=== PATIENT | male | born 1995 | race Caucasian/White ===

== ENCOUNTER 2018-07-03 12:41 | Emergency (ER) | payer OTHER ==
[~2018-07-03] VITALS: Ht 167.6 cm; Wt 63.3 kg
[~2018-07-03 12:41] MED LIST: FLUO-191 PO; FOLI1 PO; MULT-1238 PO; OLAN5TAB40 PO; THIA100T67 PO
[2018-07-03 13:34] LABS: BASOPHILS % (AUTO) 0.5 % (0.0-2.0); EOSINOPHILS % (AUTO) 4.6 % (1.0-6.0); HEMATOCRIT 50.7 % (41-53); HEMOGLOBIN 17.6 g/dL (13.5-17.5); LYMPHOCYTES # (AUTO) 2.2 K/uL (1.0-4.8); LYMPHOCYTES % (AUTO) 24.6 % (22.0-44.0); MEAN CORPUSCULAR HEMOGLOBIN 32.1 pg (26.0-34.0); MEAN CORPUSCULAR HGB CONC 34.8 G/dL (31.0-37.0); MEAN CORPUSCULAR VOLUME 92 fL (80-100); MONOCYTES # (AUTO) 0.7 K/uL (0.1-1.0); MONOCYTES % (AUTO) 7.8 % (2.0-9.0); NEUTROPHILS # (AUTO) 5.6 K/uL (1.8-7.7); NEUTROPHILS % (AUTO) 62.5 % (40.0-70.0); PLATELET COUNT (AUTO) 311 K/uL (150-450); RED BLOOD CELL COUNT(AUTO) 5.49 MIL/uL (4.50-5.90); RED CELL DISTRIBUTION WIDTH 13.5 % (11.5-14.5)
[2018-07-03 13:41] LABS: ANION GAP 8 mmol/L (8-16); CALCIUM, TOTAL 8.9 mg/dL (8.8-10.5); CARBON DIOXIDE 26 mmol/L (22-29); CHLORIDE 101 mmol/L (98-107); CREATININE 0.87 mg/dL (0.60-1.30); GLOMERULAR FILTR. RATE CALC > 60 mL/min (>60); GLUCOSE,RANDOM 107 mg/dL (70-110); POTASSIUM 3.8 mmol/L (3.5-5.1); SODIUM SERUM 135 mmol/L (136-145); UREA NITROGEN, BLOOD 14 mg/dL (7-18)
[2018-07-03 13:47] LABS: ALANINE AMINOTRANSFERASE 25 U/L (12-78); ALBUMIN 4.4 g/dL (3.4-5.0); ALKALINE PHOSPHATASE 83 U/L (46-116); ASPARTATE AMINOTRANSFERASE 15 U/L (15-37); BILIRUBIN,TOTAL 0.9 mg/dL (0.1-1.0); TOTAL PROTEIN, SERUM 8.3 g/dL (6.4-8.2)
[2018-07-03 13:52] LABS: ACETAMINOPHEN < 2 mcg/mL (10-30)
[2018-07-03 13:56] LABS: SALICYLATE 3.6 mg/dL (2.8-20.0)
[2018-07-03] MEDS ORDERED: SODIUM CHLORIDE 0.9% 1,000 ML IV ONE ×2 (14:30→16:30)
[2018-07-03] MEDS ORDERED: LORazepam 2 MG/ML VIAL ONE (16:24)
[2018-07-03] MEDS ORDERED: HALOPERIDOL LACTATE 5 MG/ML VIAL ONE (16:24)
[2018-07-03] MEDS ORDERED: DiphenhydrAMINE HCL 50 MG/ML VIAL ONE (16:24)
[2018-07-03] MEDS ORDERED: DiphenhydrAMINE HCL 50 MG/ML VIAL IVP ONE (16:30)
[2018-07-03] MEDS ORDERED: LORazepam 2 MG/ML VIAL IVP ONE (16:30)
[2018-07-03] MEDS ORDERED: HALOPERIDOL LACTATE 5 MG/ML VIAL IVP ONE (16:30)
[2018-07-03] MEDS ORDERED: LORazepam 2 MG TABLET PO PRN (17:45)
[2018-07-03] MEDS ORDERED: ZOLPIDEM TARTRATE 10 MG TABLET PO PRN (17:45)
[2018-07-03] MEDS ORDERED: HALOPERIDOL 5 MG TABLET PO PRN (17:45)
[2018-07-04 02:43] LABS: APPEARANCE,URINE CLEAR (CLEAR); BILIRUBIN,URINE NEGATIVE (NEGATIVE); GLUCOSE, URINE (UA) NEGATIVE (NEGATIVE); KETONES,URINE 40 mg/dL (NEGATIVE); LEUKOCYTE ESTERASE ,URINE NEGATIVE (NEGATIVE); NITRATE,URINE NEGATIVE (NEGATIVE); OCCULT BLOOD,URINE NEGATIVE (NEGATIVE); PROTEIN,URINE NEGATIVE (NEGATIVE); UROBILINOGEN,URINE 0.2 mg/dL (<=1.0)
[2018-07-04 02:47] LABS: AMPHET/METH SCREEN,URINE NEGATIVE (NEGATIVE); BARBITURATE SCREEN, URINE NEGATIVE (NEGATIVE); BENZODIAZEPINES SCREEN,URINE NEGATIVE (NEGATIVE); CANNABINOID SCREEN,URINE POSITIVE (NEGATIVE); COCAINE SCREEN,URINE NEGATIVE (NEGATIVE); METHADONE SCREEN, URINE NEGATIVE (NEGATIVE); OPIATE SCREEN,URINE NEGATIVE (NEGATIVE)
[2018-07-04 02:48] LABS: PHENCYCLIDINE SCREEN,URINE NEGATIVE (NEGATIVE)
[2018-07-04] MEDS ORDERED: DiphenhydrAMINE HCL 50 MG/ML VIAL ONE (15:05)
[2018-07-04] MEDS ORDERED: HALOPERIDOL LACTATE 5 MG/ML VIAL ONE (15:05)
[2018-07-04] MEDS ORDERED: LORazepam 2 MG/ML VIAL ONE (15:05)
[2018-07-04] MEDS ORDERED: DiphenhydrAMINE HCL 50 MG/ML VIAL IM ONE (15:15)
[2018-07-04] MEDS ORDERED: LORazepam 2 MG/ML VIAL IM ONE (15:15)
[2018-07-04] MEDS ORDERED: HALOPERIDOL LACTATE 5 MG/ML VIAL IM ONE (15:15)
[2018-07-04 17:13] VITALS: BP 138/78
== END 2018-07-04 18:32 | disposition short-term general hospital (02) ==
LOC: EMS 12:42
DX: T42.6X2A Poisoning by other antiepileptic and sedative-hypnotic drugs, intentional self-harm, initial encounter (principal); F20.9 Schizophrenia, unspecified; F32.9 Major depressive disorder, single episode, unspecified; F12.90 Cannabis use, unspecified, uncomplicated; Y92.89 Other specified places as the place of occurrence of the external cause
CPT/HCPCS: 36415; 80053; 80061; 80307; 81003; 85025; 93005; 96372; 96374; 96375; 99285; G0480 ×2; G0481; J1200 ×2; J1630 ×2; J2060 ×2

== ENCOUNTER 2018-12-30 09:48 | Emergency (ER) | payer OTHER ==
[~2018-12-30] VITALS: Ht 167.6 cm; Wt 59.0 kg
[2018-12-30 10:54] VITALS: BP 118/68
[2018-12-30 11:07] LABS: ANION GAP 10 mmol/L (8-16); CARBON DIOXIDE 25 mmol/L (22-29); CHLORIDE 103 mmol/L (98-107); CREATININE 1.13 mg/dL (0.60-1.30); GLOMERULAR FILTR. RATE CALC > 60 mL/min (>60); GLUCOSE,RANDOM 173 mg/dL (70-110); POTASSIUM 4.2 mmol/L (3.5-5.1); SODIUM SERUM 138 mmol/L (136-145); UREA NITROGEN, BLOOD 12 mg/dL (7-18)
[2018-12-30 11:12] LABS: BASOPHILS % (AUTO) 0.3 % (0.0-2.0); EOSINOPHILS % (AUTO) 3.5 % (1.0-6.0); HEMATOCRIT 51.3 % (41-53); HEMOGLOBIN 17.5 g/dL (13.5-17.5); LYMPHOCYTES # (AUTO) 1.2 K/uL (1.0-4.8); LYMPHOCYTES % (AUTO) 13.4 % (22.0-44.0); MEAN CORPUSCULAR HEMOGLOBIN 31.7 pg (26.0-34.0); MEAN CORPUSCULAR HGB CONC 34.1 G/dL (31.0-37.0); MEAN CORPUSCULAR VOLUME 93 fL (80-100); MONOCYTES # (AUTO) 0.7 K/uL (0.1-1.0); MONOCYTES % (AUTO) 7.9 % (2.0-9.0); NEUTROPHILS # (AUTO) 6.8 K/uL (1.8-7.7); NEUTROPHILS % (AUTO) 74.9 % (40.0-70.0); PLATELET COUNT (AUTO) 244 K/uL (150-450); RED CELL DISTRIBUTION WIDTH 13.3 % (11.5-14.5)
[2018-12-30 11:13] LABS: ALANINE AMINOTRANSFERASE 94 U/L (12-78); ALBUMIN 4.3 g/dL (3.4-5.0); ALKALINE PHOSPHATASE 68 U/L (46-116); ASPARTATE AMINOTRANSFERASE 324 U/L (15-37); BILIRUBIN,TOTAL 0.7 mg/dL (0.1-1.0); TOTAL PROTEIN, SERUM 7.5 g/dL (6.4-8.2)
[2018-12-30] MEDS ORDERED: OLANZapine 5 MG TABLET PO ONE (11:45)
== END 2018-12-30 12:13 | disposition home or self-care (01) ==
LOC: EMS 09:50
DX: F20.0 Paranoid schizophrenia (principal); R79.89 Other specified abnormal findings of blood chemistry; F32.9 Major depressive disorder, single episode, unspecified; F17.210 Nicotine dependence, cigarettes, uncomplicated
CPT/HCPCS: 36415; 80053; 85025; 99285; G0480

== ENCOUNTER 2019-04-22 04:13 | Inpatient (IN) | payer OTHER ==
[~2019-04-22] VITALS: Ht 167.6 cm; Wt 58.7 kg
[2019-04-22 04:33] LABS: BASOPHILS % (AUTO) 0.6 % (0.0-2.0); EOSINOPHILS % (AUTO) 6.7 % (1.0-6.0); HEMATOCRIT 47.6 % (41-53); HEMOGLOBIN 16.3 g/dL (13.5-17.5); LYMPHOCYTES # (AUTO) 2.3 K/uL (1.0-4.8); LYMPHOCYTES % (AUTO) 28.6 % (22.0-44.0); MEAN CORPUSCULAR HEMOGLOBIN 32.7 pg (26.0-34.0); MEAN CORPUSCULAR HGB CONC 34.2 G/dL (31.0-37.0); MEAN CORPUSCULAR VOLUME 96 fL (80-100); MONOCYTES # (AUTO) 0.5 K/uL (0.1-1.0); MONOCYTES % (AUTO) 6.3 % (2.0-9.0); NEUTROPHILS # (AUTO) 4.5 K/uL (1.8-7.7); NEUTROPHILS % (AUTO) 57.8 % (40.0-70.0); PLATELET COUNT (AUTO) 280 K/uL (150-450); RED BLOOD CELL COUNT(AUTO) 4.98 MIL/uL (4.50-5.90); RED CELL DISTRIBUTION WIDTH 13.3 % (11.5-14.5)
[2019-04-22 04:42] LABS: ANION GAP 13 mmol/L (8-16); CALCIUM, TOTAL 9.5 mg/dL (8.8-10.5); CARBON DIOXIDE 23 mmol/L (22-29); CHLORIDE 98 mmol/L (98-107); CREATININE 0.97 mg/dL (0.60-1.30); GLOMERULAR FILTR. RATE CALC > 60 mL/min (>60); GLUCOSE,RANDOM 216 mg/dL (70-110); POTASSIUM 3.2 mmol/L (3.5-5.1); SODIUM SERUM 134 mmol/L (136-145); UREA NITROGEN, BLOOD 19 mg/dL (7-18)
[2019-04-22 04:51] LABS: ALANINE AMINOTRANSFERASE 10 U/L (12-78); ALBUMIN 4.5 g/dL (3.4-5.0); ALKALINE PHOSPHATASE 75 U/L (46-116); ASPARTATE AMINOTRANSFERASE 14 U/L (15-37); BILIRUBIN,TOTAL 1.1 mg/dL (0.1-1.0); TOTAL PROTEIN, SERUM 7.7 g/dL (6.4-8.2)
[2019-04-22 04:55] LABS: ACETAMINOPHEN < 2 mcg/mL (10-30)
[2019-04-22] MEDS ORDERED: POTASSIUM CHLORIDE 20 MEQ ER TABLET PO ONE (05:00)
[2019-04-22 05:10] LABS: SALICYLATE 3.8 mg/dL (2.8-20.0)
[2019-04-22] MEDS ORDERED: OLANZapine 5 MG TABLET PO ONE (05:45)
[2019-04-22 12:24] LABS: AMPHET/METH SCREEN,URINE NEGATIVE (NEGATIVE); BARBITURATE SCREEN, URINE NEGATIVE (NEGATIVE); BENZODIAZEPINES SCREEN,URINE NEGATIVE (NEGATIVE); CANNABINOID SCREEN,URINE POSITIVE (NEGATIVE); COCAINE SCREEN,URINE NEGATIVE (NEGATIVE); METHADONE SCREEN, URINE NEGATIVE (NEGATIVE); OPIATE SCREEN,URINE NEGATIVE (NEGATIVE); PHENCYCLIDINE SCREEN,URINE NEGATIVE (NEGATIVE)
[2019-04-22] MEDS ORDERED: HydrOXYzine PAMOATE 50 MG CAPSULE PO PRN (14:00)
[2019-04-22] MEDS ORDERED: LORazepam 2 MG TABLET PO PRN (14:00)
[2019-04-22] MEDS ORDERED: LOPERAMIDE HCL 2 MG CAPSULE PO PRN (14:00)
[2019-04-22] MEDS ORDERED: ACETAMINOPHEN 325 MG TABLET PO PRN (14:00)
[2019-04-22] MEDS ORDERED: ZOLPIDEM TARTRATE 10 MG TABLET PO PRN (14:00)
[2019-04-22] MEDS ORDERED: GuaiFENesin/D-METHORPHAN [SUGAR-FREE] 200-20MG/10 ML SYRUP UDCUP PO PRN (14:00)
[2019-04-22] MEDS ORDERED: MAGNESIUM HYDROXIDE SUSPENSION 30 ML UDCUP PO PRN (14:00)
[2019-04-22] MEDS ORDERED: OLANZapine 5 MG RAPDIS TABLET PO PRN (14:00)
[2019-04-22] MEDS ORDERED: PROMETHAZINE HCL 25 MG TABLET PO PRN (14:00)
[2019-04-22] MEDS ORDERED: TUBERCULIN, PURIFIED PROTEIN DERIVATIVE 5 TU/0.1 ML SYRINGE ID ONE (14:00)
[2019-04-22] MEDS ORDERED: MAG HYDROX/AL HYDROX/SIMETH ES 30 ML SUSPENSION UDCUP PO PRN (14:00)
[2019-04-22] MEDS: THIAMINE HCL 100 MG TABLET PO SCH (17:00)
[2019-04-22 17:42] VITALS: BP 117/63
[2019-04-22] MEDS: NICOTINE 21 MG/24 HOUR PATCH TD SCH (18:08)
[2019-04-22] MEDS: OLANZapine 5 MG RAPDIS TABLET PO SCH (20:24)
[2019-04-23 08:07] LABS: CHOL/HDL RATIO 4.1 (4.2-7.3); FREE T4 (FREE THYROXINE) 1.15 ng/dL (0.76-1.46); POTASSIUM 4.9 mmol/L (3.5-5.1); THYROID STIMULATING HORMONE 0.35 uIU/mL (0.36-3.74)
[2019-04-23 08:32] VITALS: BP 110/76
[2019-04-23] MEDS: FOLIC ACID 1 MG TABLET PO SCH (09:03)
[2019-04-23] MEDS: FLUoxetine HCL 20 MG CAPSULE PO SCH (09:03)
[2019-04-23] MEDS: MULTIVITAMINS WITH MINERALS, THERAPEUTIC TABLET PO SCH (09:03)
[2019-04-23] MEDS: THIAMINE HCL 100 MG TABLET PO SCH ×2 (09:03→16:57)
[2019-04-23] MEDS: NICOTINE 21 MG/24 HOUR PATCH TD SCH (09:03)
[2019-04-23 16:00] VITALS: BP 115/67
[2019-04-23] MEDS: OLANZapine 5 MG RAPDIS TABLET PO SCH (20:25)
[2019-04-24 07:18] VITALS: BP 116/63
[2019-04-24] MEDS: NICOTINE 21 MG/24 HOUR PATCH TD SCH ×2 (08:51→09:00)
[2019-04-24] MEDS: THIAMINE HCL 100 MG TABLET PO SCH ×2 (08:51→17:09)
[2019-04-24] MEDS: MULTIVITAMINS WITH MINERALS, THERAPEUTIC TABLET PO SCH (08:56)
[2019-04-24] MEDS: FLUoxetine HCL 20 MG CAPSULE PO SCH (08:56)
[2019-04-24] MEDS: NALTREXONE HCL 50 MG TABLET PO SCH (08:56)
[2019-04-24] MEDS: FOLIC ACID 1 MG TABLET PO SCH (08:56)
[2019-04-24 16:23] VITALS: BP 138/78
[2019-04-24] MEDS: OLANZapine 5 MG RAPDIS TABLET PO SCH (20:30)
[2019-04-25 01:03] VITALS: BP 128/62
[2019-04-25 08:02] VITALS: BP 137/81
[2019-04-25] MEDS: NICOTINE 21 MG/24 HOUR PATCH TD SCH (09:00)
[2019-04-25] MEDS: FOLIC ACID 1 MG TABLET PO SCH (09:03)
[2019-04-25] MEDS: THIAMINE HCL 100 MG TABLET PO SCH ×2 (09:03→17:11)
[2019-04-25] MEDS: NALTREXONE HCL 50 MG TABLET PO SCH (09:03)
[2019-04-25] MEDS: MULTIVITAMINS WITH MINERALS, THERAPEUTIC TABLET PO SCH (09:03)
[2019-04-25] MEDS: FLUoxetine HCL 20 MG CAPSULE PO SCH (09:03)
[2019-04-25 16:00] VITALS: BP 117/67
[2019-04-25] MEDS ORDERED: PALIPERIDONE 1.5 MG ER TABLET PO PRN (16:15)
[2019-04-25] MEDS ORDERED: PALIPERIDONE PALMITATE 234 MG/1.5 ML SYRINGE IM ONE (21:00)
[2019-04-26 08:04] VITALS: BP 120/84
[2019-04-26] MEDS: THIAMINE HCL 100 MG TABLET PO SCH (08:39)
[2019-04-26] MEDS: NALTREXONE HCL 50 MG TABLET PO SCH (08:40)
[2019-04-26] MEDS: MULTIVITAMINS WITH MINERALS, THERAPEUTIC TABLET PO SCH (08:40)
[2019-04-26] MEDS: FOLIC ACID 1 MG TABLET PO SCH (08:40)
[2019-04-26] MEDS: FLUoxetine HCL 20 MG CAPSULE PO SCH (08:40)
[2019-04-26] MEDS: NICOTINE 21 MG/24 HOUR PATCH TD SCH (08:41)
[2019-04-26] MEDS ORDERED: FLUO-191 PO (11:47)
[2019-04-26] MEDS ORDERED: PALI117D IM (11:47)
[2019-04-26] MEDS ORDERED: PALI156D IM ×2 (11:47→11:57)
[2019-04-26] MEDS ORDERED: NALT50TA PO (11:47)
[2019-04-26] MEDS ORDERED: NALT50TA6 PO (11:52)
[2019-04-29] MEDS ORDERED: PALIPERIDONE PALMITATE 156 MG/ML SYRINGE IM ONE (09:00)
== END 2019-04-26 13:30 | disposition home or self-care (01) | DRG 885 ==
LOC: EMS 04:15 → B3A 16:53
PROVIDERS: ADMIT Psychiatry & Neurology Psychiatry; ATTEND Psychiatry & Neurology Psychiatry
DX: F20.0 Paranoid schizophrenia (principal); R45.851 Suicidal ideations; F32.9 Major depressive disorder, single episode, unspecified; Z65.3 Problems related to other legal circumstances; Z91.14 Patient's other noncompliance with medication regimen; Z91.19 Patient's noncompliance with other medical treatment and regimen; F17.200 Nicotine dependence, unspecified, uncomplicated; F12.90 Cannabis use, unspecified, uncomplicated; Z79.899 Other long term (current) drug therapy
CPT/HCPCS: 83036; 84132; 84439; 84443; 86592; 99291; G0480; G0481

== ENCOUNTER 2023-12-12 17:00 | Emergency (ER) | payer MEDICAID, OTHER ==
[~2023-12-12] VITALS: Ht 167.6 cm; Wt 68.2 kg
[~2023-12-12 17:00] MED LIST changes: +FLUO-177 PO; -FLUO-191 PO; -FOLI1 PO; -MULT-1238 PO; +NALT50TA PO; +NALT50TA33 PO; -OLAN5TAB40 PO; +PALI117D IM; +PALI156D IM; -THIA100T67 PO
[2023-12-12 17:12] VITALS: TEMP 98.3
[2023-12-12 18:06] LABS: BASOPHILS % (AUTO) 0.3 % (0.0-2.0); EOSINOPHILS % (AUTO) 1.8 % (1.0-6.0); HEMATOCRIT 48.6 % (41-53); HEMOGLOBIN 16.5 g/dL (13.5-17.5); LYMPHOCYTES # (AUTO) 1.3 K/uL (1.0-4.8); LYMPHOCYTES % (AUTO) 8.4 % (22.0-44.0); MEAN CORPUSCULAR HEMOGLOBIN 31.2 pg (26.0-34.0); MEAN CORPUSCULAR HGB CONC 33.9 G/dL (31.0-37.0); MEAN CORPUSCULAR VOLUME 92 fL (80-100); MONOCYTES # (AUTO) 0.9 K/uL (0.1-1.0); MONOCYTES % (AUTO) 6.2 % (2.0-9.0); NEUTROPHILS # (AUTO) 12.5 K/uL (1.8-7.7); NEUTROPHILS % (AUTO) 83.3 % (40.0-70.0); PLATELET COUNT (AUTO) 310 K/uL (150-450); RED BLOOD CELL COUNT(AUTO) 5.27 MIL/uL (4.50-5.90); RED CELL DISTRIBUTION WIDTH 13.6 % (11.5-14.5); WHITE BLOOD COUNT (AUTO) 15.1 K/uL (4.5-11.0)
[2023-12-12 18:15] LABS: ANION GAP 14 mmol/L (8-16); CALCIUM, TOTAL 9.4 mg/dL (8.8-10.5); CARBON DIOXIDE 24 mmol/L (22-29); CHLORIDE 98 mmol/L (98-107); CREATININE 0.86 mg/dL (0.60-1.30); GLOMERULAR FILTR. RATE CALC > 60 mL/min (>60); GLUCOSE,RANDOM 129 mg/dL (70-110); POTASSIUM 3.4 mmol/L (3.5-5.1); SODIUM SERUM 136 mmol/L (136-145); UREA NITROGEN, BLOOD 16 mg/dL (7-18)
[2023-12-12 18:21] LABS: ALANINE AMINOTRANSFERASE 29 U/L (12-78); ALKALINE PHOSPHATASE 102 U/L (46-116); ASPARTATE AMINOTRANSFERASE 26 U/L (15-37); LIPASE 32 U/L (16-77); TOTAL PROTEIN, SERUM 8.3 g/dL (6.4-8.2)
[2023-12-12] MEDS: LIDOCAINE 1% 10 ML VIAL SQ ONE (18:46)
[2023-12-12] MEDS: BACITRACIN 0.9 GM PACKET OINTMENT TP ONE (18:46)
[2023-12-12] MEDS: ONDANSETRON HCL 4 MG/2 ML VIAL IVP ONE (18:46)
[2023-12-12] MEDS: ACETAMINOPHEN 500 MG TABLET PO ONE (18:47)
[2023-12-12] MEDS: SODIUM CHLORIDE 0.9% 1,000 ML IV ONE (18:47)
[2023-12-12] MEDS: DIPHENOXYLATE/ATROP 2.5-0.025 MG TABLET PO ONE (18:47)
[2023-12-12] MEDS: PERTUSS(ACELL),DIPH,TET/PF 0.5 ML SYRINGE [ADULT] IM. ONE (18:48)
[2023-12-12 20:00] VITALS: BP 142/91; PULSE 78; RESP 16
== END 2023-12-12 20:12 | disposition home or self-care (01) ==
LOC: EMS 17:01
DX: S01.81XA Laceration without foreign body of other part of head, initial encounter (principal); F14.10 Cocaine abuse, uncomplicated; K52.9 Noninfective gastroenteritis and colitis, unspecified; F32.A Depression, unspecified; F20.9 Schizophrenia, unspecified; F17.210 Nicotine dependence, cigarettes, uncomplicated; F12.90 Cannabis use, unspecified, uncomplicated; W19.XXXA Unspecified fall, initial encounter; Y93.89 Activity, other specified; Y92.89 Other specified places as the place of occurrence of the external cause; Y99.8 Other external cause status
CPT/HCPCS: 99285; 96374; 70450; 96361; 80053; 83690; 85025; 36415; 90715; 90471; 12011; J2405; J3490; J7030

== ENCOUNTER 2023-12-20 21:37 | Emergency (ER) | payer MEDICAID ==
[~2023-12-20] VITALS: Ht 172.7 cm; Wt 72.7 kg
[~2023-12-20 21:37] MED LIST changes: -NALT50TA33 PO; -PALI156D IM
[2023-12-20 22:08] VITALS: BP 133/78; PULSE 102; RESP 16; TEMP 98.3
[2023-12-20] MEDS: OXYMETAZOLINE HCL 0.05% 15 ML NASAL SPRAY NASAL ONE (23:58)
[2023-12-21] MEDS ORDERED: IBUP-1492 PO (23:19)
[2023-12-21] MEDS ORDERED: ACET-3385 PO (23:19)
== END 2023-12-21 00:55 | disposition home or self-care (01) ==
LOC: EMS 21:40
DX: R04.0 Epistaxis (principal); F20.9 Schizophrenia, unspecified; F31.9 Bipolar disorder, unspecified; F17.210 Nicotine dependence, cigarettes, uncomplicated; F12.90 Cannabis use, unspecified, uncomplicated; F14.90 Cocaine use, unspecified, uncomplicated
CPT/HCPCS: 99282; Z7502; Z7610

== ENCOUNTER 2023-12-21 19:52 | Emergency (ER) | payer MEDICAID ==
[~2023-12-21] VITALS: Ht 167.6 cm; Wt 68.2 kg
[2023-12-21 19:57] VITALS: TEMP 98.4
[2023-12-21] MEDS ORDERED: IBUP-1492 PO (23:19)
[2023-12-21] MEDS ORDERED: ACET-3385 PO (23:19)
[2023-12-21 23:26] VITALS: BP 131/85; PULSE 85; RESP 16
[2023-12-21] MEDS: IBUPROFEN 600 MG TABLET PO ONE (23:28)
[2023-12-21] MEDS: ACETAMINOPHEN 500 MG TABLET PO ONE (23:29)
== END 2023-12-21 23:36 | disposition home or self-care (01) ==
LOC: EMS 19:54
DX: R04.0 Epistaxis (principal); F31.9 Bipolar disorder, unspecified; F20.9 Schizophrenia, unspecified; F17.210 Nicotine dependence, cigarettes, uncomplicated; F14.90 Cocaine use, unspecified, uncomplicated; F12.90 Cannabis use, unspecified, uncomplicated
CPT/HCPCS: 99283